=== PATIENT | male | born 1950 | race Caucasian/White ===

== ENCOUNTER 2017-04-01 11:26 | Emergency (ER) | payer BC ==
[2017-04-01 11:50] VITALS: O2SAT 98
--- NOTE | 2017-04-01 12:46 | RAD ---
PROCEDURE: Right Wrist Radiographs. HISTORY: fall R arm trauma COMPARISON: None. FINDINGS: BONES: No acute fracture or destructive bony lesion identified. JOINTS: Degenerative joint space narrowing and articular cortical sclerosis appreciate throughout the carpal metacarpal articulations diffusely as well as the trapezium and trapezius articulations with the navicular bone. No dislocation or subluxation appreciated. SOFT TISSUES: Normal. OTHER FINDINGS: None. IMPRESSION: Degenerative changes as per above. No acute fracture or dislocation identified.
--- NOTE | 2017-04-01 12:48 | RAD ---
PROCEDURE: Radiographs of the Right Forearm HISTORY: fall R arm trauma COMPARISON: None available. TECHNIQUE: Frontal and lateral views obtained. FINDINGS: BONES: No fracture or destructive lesion. JOINT SPACES: There is a proximal and medial dislocation of the proximal radius and ulna at the elbow joint. Varus angulation results. OTHER FINDINGS: None. IMPRESSION: Proximal slice medial dislocation right radius and ulna with valgus angulation at the elbow joint. No fracture appreciable.
--- NOTE | 2017-04-01 12:49 | RAD ---
PROCEDURE: Radiographs of the right elbow. HISTORY: fall R arm trauma COMPARISON: No prior. FINDINGS: BONES: No acute fracture or destructive bony lesion identified. JOINTS: Proximal medial dislocation of the radius and ulna is appreciate relative to the distal humerus as described in separate forearm radiography also performed 04/01/2017. SOFT TISSUES: Diffuse subtle edema is appreciated subcutaneous fat throughout the elbow, distal arm and proximal forearm as imaged. JOINT EFFUSION: None. OTHER FINDINGS: None. IMPRESSION: Right elbow dislocation without fracture as discussed above.
--- NOTE | 2017-04-01 12:52 | RAD ---
PROCEDURE: Radiographs of the right humerus. HISTORY: fall R arm trauma COMPARISON: None. FINDINGS: BONES: No acute fracture or destructive bony lesion identified.Dislocated elbow was appreciated described in greater detail separate elbow and forearm radiographs of the right arm also performed 04/01/2017. SOFT TISSUES: Reticular changes is seen reflecting edema in the medial elbow subcutaneous fat. OTHER FINDINGS: None. IMPRESSION: Dislocated right elbow without fracture of the right humerus.
--- NOTE | 2017-04-01 14:01 | ED PDOC ---
Upper Extremity Pain/Injury Time Seen by Provider: 04/01/17 11:44 Chief Complaint (Nursing): Upper Extremity Problem/Injury Chief Complaint (Provider): Right arm injury History Per: Patient History/Exam Limitations: no limitations Onset/Duration Of Symptoms: Days (x3) Current Symptoms Are (Timing): Still Present Additional Complaint(s): Wilfredo Wooten is a 66 year old male with a past surgical history of shoulder surgery occurring 35 years ago presenting to the ED for an evaluation of a right arm injury occurring 3 days prior to arrival. The patient states he was working on his car on Sunday when he slipped and fell causing an injury to his right arm. Since then, the patient reports limited range of motion with an inability to flex his lower arm and states having difficulty opening jars with his right hand. The patient denies shoulder, neck, or back pain. PMD: None Provided Past Medical History Reviewed: Historical Data, Nursing Documentation, Vital Signs Vital Signs: Last Vital Signs Temp 97 F L 04/01/17 11:48 Pulse 90 04/01/17 11:48 Resp 20 04/01/17 11:48 BP 151/96 H 04/01/17 11:48 Pulse Ox 98 04/01/17 11:48 - Medical History PMH: No Chronic Diseases - Surgical History Other surgeries: shoulder surgery - Family History Family History: States: No Known Family Hx - Allergies Allergies/Adverse Reactions: Allergies Allergy/AdvReac Type Severity Reaction Status Date / Time No Known Allergies Allergy Verified 04/01/17 11:50 Review of Systems ROS Statement: Except As Marked, All Systems Reviewed And Found Negative Musculoskeletal: Positive for: Arm Pain (right). Negative for: Neck Pain, Shoulder Pain, Back Pain Physical Exam - Reviewed Nursing Documentation Reviewed: Yes Vital Signs Reviewed: Yes - Physical Exam Appears: Positive for: Non-toxic, No Acute Distress Head Exam: Positive for: ATRAUMATIC, NORMOCEPHALIC Skin: Positive for: Normal Color, Warm, Dry Eye Exam: Positive for: Normal appearance, EOMI ENT: Positive for: Normal ENT Inspection Neck: Positive for: Normal, Painless ROM Cardiovascular/Chest: Positive for: Regular Rate, Rhythm, Chest Non Tender Respiratory: Positive for: Normal Breath Sounds. Negative for: Respiratory Distress Gastrointestinal/Abdominal: Positive for: Normal Exam, Soft. Negative for: Tenderness Extremity: Positive for: Tenderness (right hand and right shoulder are nontendor ; right wrist is mildly tendor), Deformity (right arm: elbow is edematous with ecchymosis, deformity, and limited ROM) Neurologic/Psych: Positive for: Alert, Oriented (x3). Negative for: Motor/ Sensory Deficits - Laboratory Results Result Diagrams: 04/01/17 14:05 04/01/17 14:05 - ECG O2 Sat by Pulse Oximetry: 98 (RA) Pulse Ox Interpretation: Normal Medical Decision Making Medical Decision Making: Time: 11:44 Impression: Right arm injury Plan: * ED ekg * CMP * NPO Diet * CBC (with differential) * Toradol 30 mg IM * ED Nitrous oxide via mask * [RAD] Elbow Right 3 Views Routine * [RAD] Forearm Right * [RAD] Humerus Right * [RAD] Wrist, Right 3 Views * Reevaluation X-rays showed a right elbow dislocation. Orthopedics was consulted and recommended attempted reduction in ED. Obtained consent. Patient refused sedation and wanted to try nitrous oxide instead. Patient tolerated procedure well, but reduction unsuccessful despite repeat attempts. Patients last PO intake was 8:30 AM this morning. Rediscussed w Dr Bell, will consult in ED, may require procedural sedation. Scribe Attestation: Documented by Debbie Carmona, acting as a scribe for Pernell Parra DO. Provider Scribe Attestation: All medical record entries made by the Scribe were at my direction and personally dictated by me. I have reviewed the chart and agree that the record accurately reflects my personal performance of the history, physical exam, medical decision making, and the department course for this patient. I have also personally directed, reviewed, and agree with the discharge instructions and disposition. Disposition - Clinical Impression Clinical Impression: Dislocated elbow - Patient ED Disposition Is Patient to be Admitted: Transfer of Care - Disposition Disposition: Transfer of Care Disposition Time: 16:28 Condition: FAIR Forms: [facility] ([place]i) Patient Signed Over To: Mindy Tay Handoff Comments: pending orthopedics evaluation in ED for reduction under sedation
[2017-04-01 14:16] LABS: BASO # 0.1 K/uL (0.0-0.2); BASO % 0.5 % (0.0-2.0); EOS % 0.3 % (0.0-4.0); HEMATOCRIT 43.7 % (35.0-51.0); LYMPH # 2.6 K/uL (1.0-4.3); LYMPH % 23.1 % (20.0-40.0); MEAN CELL VOLUME 91.3 fl (80.0-94.0); MEAN CORPUSCULAR HEMOGLOBIN 30.2 pg (27.0-31.0); MEAN CORPUSCULAR HGB CONC 33.1 g/dL (33.0-37.0); MEAN PLATELET VOLUME 9.4 fl (7.2-11.7); MONO # 1.2 K/uL (0.0-0.8); MONO % 10.7 % (0.0-10.0); NEUT # 7.3 K/uL (1.8-7.0); NEUT % 65.4 % (50.0-75.0); RED CELL DISTRIBUTION WIDTH 12.4 % (11.5-14.5); WHITE BLOOD COUNT 11.1 K/uL (4.8-10.8)
[2017-04-01 14:36] LABS: ALB/GLOB RATIO 1.3 (1.0-2.1); ALKALINE PHOSPHATASE 45 U/L (38-126); ALT/SGPT 39 U/L (21-72); AST/SGOT 53 U/L (17-59); BLOOD UREA NITROGEN 19 mg/dl (9-20); CALCIUM 8.8 mg/dL (8.4-10.2); CARBON DIOXIDE 26 mmol/L (22-30); CHLORIDE 107 mmol/L (98-107); GFR AFRICAN-AMERICAN > 60; GLUCOSE,RANDOM 110 mg/dL (75-110); POTASSIUM 4.2 MMOL/L (3.6-5.0); SODIUM 140 mmol/l (132-148); TOTAL PROTEIN 7.4 G/DL (6.3-8.2)
[2017-04-01] MEDS ORDERED: Propofol 10 mg/ml Inj (20 ML) ONE ×2 (16:07→16:23)
[2017-04-01] MEDS ORDERED: Propofol 10 mg/ml 0 MG/0 ML VIAL ONE (16:08)
[2017-04-01] MEDS ORDERED: Propofol 10 mg/ml Inj (20 ML) IV ONE (16:09)
[2017-04-01 16:33] VITALS: TEMP 98
--- NOTE | 2017-04-01 17:16 | ED PDOC ---
- Laboratory Results Result Diagrams: 04/01/17 14:05 04/01/17 14:05 - ECG O2 Sat by Pulse Oximetry: 98 (RA) Pulse Ox Interpretation: Normal Medical Decision Making Medical Decision Making: --16:00 Patient signed out to me by Dr. Pernell Parra III pending evaluation of the patient's right elbow dislocation by Dr. Bell (ortho) Reassess --16:[address] Bell under conscious sedation. Right elbow was reduced by Dr. Bell. Patient to have Cat Scan and pending reevaluation the patient will be discharged to follow up with Dr. Bell next week. --18:07 FINDINGS: CT Right Upper Extremity Without Intravenous Contrast, Elbow Bones/joints: There has been interval reduction of the previously described radial and ulnar dislocations. There is very mild lateral (radial) subluxation of the radial head relative to the capitellum and of the ulnar coronoid process relative to the trochlea. There is also very mild posterior subluxation of the radial head relative to the capitellum. Tiny, minimally displaced fracture through the anterior lip of the ulnar coronoid process. There are also multiple 1-2 mm calcific foci in the soft tissues about the elbow but no definite donor fracture site(s) are identified. Soft tissues: Extensive swelling and edema of the soft tissues around the elbow. Small elbow effusion. No air in the soft tissues. No radiopaque foreign body. IMPRESSION: 1. Interval reduction of the previously described radial and ulnar dislocations. Very mild radial and ulnar subluxation as described above. 2. Tiny, minimally displaced fracture through the anterior lip of the ulnar coronoid process. 3. Multiple 1-2 mm calcific foci in the soft tissues about the elbow may be nonspecific soft tissue calcifications as no definite donor fracture site(s) are identified but tiny fracture fragments are not excluded. 4. Extensive soft tissue swelling and edema. Small elbow effusion 6P On reeval pt is awake oriented x 3. Aware of plan of care. Scribe Attestation: Documented by Andre Springer acting as a scribe for Mindy Tay MD. Disposition - Clinical Impression Clinical Impression: Dislocated elbow, Fracture of coronoid process of left ulna - POA Present On Arrival: Falls Or Trauma - Disposition Referrals: Carter Bell MD [Medical Doctor] - 04/02/17 (CALL TOMORROW TO SETUP FOLLOW UP APPOINTMENT THIS WEEK) Disposition: Routine/Home Disposition Time: 18:45 Condition: IMPROVED Prescriptions: Ibuprofen [Motrin Tab] 600 mg PO Q8 PRN #30 tab PRN Reason: Pain, Moderate (4-7) Instructions: Elbow Dislocation (ED), Deep Sedation (ED), Cast Care (ED) ED Procedural Sedation - Pre Anesthesia Assessment Chief Complaint: Upper Extremity Problem/Injury Past Medical History: Medications Reviewed, Allergies Reviewed, Record Review Previous Surgies: Reviewed Family History/Social History: Reviewed - Physical Exam/Review of Systems Vital Signs Reviewed: Yes Cardiovascular: Regular Rate and Rhythm, Normal S1, S2. denies: Murmurs Respiratory/Chest: Clear to Auscultation, Good Air Exchange, Respiratory Distress. denies: Accessory Muscle Use Neurological: GCS=15, CN II-XII Intact, Speech Normal Abdomen: denies: Tenderness, Distention, Peritoneal Signs Mental Status: Alert and Oriented X 3 - Pre-Procedure Airway Assessment History of difficult intubation or surgical airway(i.e trach: No Inability to extend neck:: No Mouth opening less than two finger breadth:: No Diagnosis of sleep apnea:: No Less than three finger breadth to hyoid bone:: No ASA Criteria: 1 - Healthy, normal. 2 - Mild systemic disease (No functional limitations, mildline obesity, DM withot complications, Hypertention). 3 - Severe systemic disease (Some functional limitation, stable angina, morbid obesity, controlled COPD/Asthma/CHF). 4 - Sever systemic disease constant threat to life (Unstable angina, active symptoms of COPD/Asthma, CHF/ Hypertension. 5 - Moribund ASA Clarification: ASA I Mallampati (airway): Class I - Intra-Procedure (Medications) Medications Given: Discontinued Medications Ketorolac Tromethamine (Toradol) 30 mg IM ONCE STA Stop: 04/01/17 11:56 Last Admin: 04/01/17 11:59 Dose: 30 mg YADIRA Pain Assessment Document 04/01/17 11:59 CDB (Rec: 04/01/17 12:02 [facility] [id number]) Pain Reassessment Is this a pain reassessment? No Sleep Is patient sleeping during reassessment? No Presence of Pain Presence of Pain Yes Pain Scale Used Pain Scale Used Numeric Location Left, Right or Bilateral Right Pain Location Body Site Arm Description Description Intermittent Intensity of Pain at present 6 Pain Behavior Facial Grimacing Aggravating Factors Changing Position Exercise/Activity Alleviating Factors/Management Medication Techniques IM Administration Charges Document 04/01/17 11:59 CDB (Rec: 04/01/17 12:02 CDB [id number]) Injection Site MAR Injection Site Left Deltoid Charges for Administration # of IM Administrations 1 Re-Assess: MAR Pain Reassessment Document 04/01/17 12:29 [email or web address] (Rec: 04/01/17 14:08 [facility] [id number]) Sleep Is patient sleeping during reassessment? No Pain Reassessment Pain not relieved and LIP/MD was No notified Pain Scale Used Numeric Upper or Lower Upper Description Intermittent Alleviating Techniques Medication Propofol (Diprivan) 200 mg IV ONCE ONE Stop: 04/01/17 16:10 Last Admin: 04/01/17 16:11 Dose: 200 mg eMAR Start Stop Document 04/01/17 16:11 [email or web address] (Rec: 04/01/17 16:13 [facility] [id number]) Intravenous Solution Start Date 04/01/17 Start Time 16:11 End Date 04/01/17 [place] Agitation Sedation Document 04/01/17 16:11 TB01 (Rec: 04/01/17 16:13 [facility] [id number]) [place]la Agitation Sedation Scale [place] Agitation Sedation Scale Score -3 Moderate Sedation:Movement or eye opening to voice (no eye contact)
[2017-04-01 19:18] VITALS: RESP 20
--- NOTE | 2017-04-02 08:14 | RAD ---
PROCEDURE: Radiographs of the right elbow. HISTORY: Postreduction radiographs COMPARISON: 04/01/2017 FINDINGS: BONES: Tiny avulsion fracture from the medial epicondyles. JOINTS: Anatomic alignment status post reduction. SOFT TISSUES: Considerable soft tissue swelling related to recent dislocation. JOINT EFFUSION: None. OTHER FINDINGS: None. IMPRESSION: Satisfactory reduction of known right elbow dislocation.
--- NOTE | 2017-04-02 08:16 | RAD ---
PROCEDURE: Radiographs of the right elbow. HISTORY: Post immobilization. COMPARISON: April 01, 2017. FINDINGS: BONES: No identifiable fracture. Limitations of the current study: Detail obscured by overlying fiberglass cast. JOINTS: Incompletely characterize subluxation right elbow SOFT TISSUES: Normal. JOINT EFFUSION: None. OTHER FINDINGS: None. IMPRESSION: Status post immobilization. Continued subluxation primarily of the olecranon.
--- NOTE | 2017-04-02 12:55 | CON ---
DATE: 04/01/2017 REASON FOR CONSULTATION: Right elbow dislocation. HISTORY OF PRESENT ILLNESS: This is a 66-year-old right-hand dominant male who sustained a slip and fall on the snow on 03/30/2017. The patient presents to the emergency room today for a concern of pain in the elbow and inability to move the elbow joint. The patient was evaluated by the emergency room attending. He underwent failed closed reduction and the elbow continued to dislocate. I was consulted for further evaluation and treatment. I saw the patient in the emergency room with following findings. PHYSICAL EXAMINATION: RIGHT ELBOW: There is diffuse swelling and ecchymosis of the elbow. There is valgus deformity. The patient has good sensation in the median, ulnar, and radial nerve distribution. Distal pulses are +2, good capillary refills. It is difficult to do active flexion and extension with the elbow. The hand is in pronation position. No pain over the wrist/hand area, and no pain over the shoulder area. IMAGING STUDIES: X-rays were seen and reviewed, a posterolateral elbow dislocation. No fractures evident on x-rays. ASSESSMENT: Right elbow posterolateral fracture dislocation, recurrent. PLAN: I discussed the above findings with the patient and the ER physician. I recommend another closed reduction in the emergency room. PROCEDURE: Informed consent was obtained for conscious sedation with anesthesia and closed reduction of the elbow. After conscious sedation was administered by the ER physician, the patient underwent closed reduction of the elbow with traction and counter traction supination and flexion of forearm. A varus-directed force was applied to the elbow palpable click was felt. Fluoroscopic images confirmed well-reduced elbow in both AP and lateral films. The elbow was, however, highly unstable with instability of the elbow past 20 degrees of flexion a long-arm cast was applied with the elbow in 20 degrees flexion with supination. Post-cast x-rays again confirmed a well-aligned elbow joint in AP and lateral films. Post cast CT scan was ordered and the patient will continue cast immobilisation. Follow up with me in one week in my office for further evaluation. Carter Bell MD [facility]
--- NOTE | 2017-04-02 13:32 | CT ---
PROCEDURE: CT right upper extremity/elbow HISTORY: RIGHT elbow dislocation post reduction COMPARISON: April 01, 2017. TECHNIQUE: 1.25 mm axial acquisition and display. Coronal and sagittal reconstructions. 3D volume rendering images. Radiation dosimetry DLP (mGy-cm) 136.[address] scans at this facility use one or more dose reduction techniques. Automated exposure control ; mA/kv adjustment per patient size (including targeted exams were dose is matched to indication) or iterative reconstruction technique. FINDINGS: Residual subluxations without florid dislocation, finding identified on the initial right elbow radiographs April 01, 2017.Time of the most recent examination: 12:07. Small avulsion fracture from the olecranon. Small avulsion fracture from the medial epicondylar region. Profound soft swelling. Incompletely visualized joint effusion. IMPRESSION: Reduction of dislocations of the radius and ulna relative to the distal humerus. Subluxation/ pseudosubluxation persists. Tiny avulsion fractures from the distal humerus and olecranon. Soft tissue swelling attests to the acuity of the dislocation/fractures. Concordant results (preliminary interpretation) provided by [facility]. Procedure Completed: 17:05 Preliminary ([facility]) Report: Dictated and Authenticated: 18:07 Final Interpretation: 13:30 April 02, 2017.
--- NOTE | 2017-04-02 16:57 | CARD ---
APPROVED REPORT EKG Measurement Heart [id number] [id number] <Conclusion> Normal sinus rhythm Normal ECG
[2017-04-03 13:14] VITALS: BP 124/78; PULSE 82
== END 2017-04-01 19:19 | disposition home or self-care (01) ==
LOC: H.ER 11:26
DX: S53.104A Unspecified dislocation of right ulnohumeral joint, initial encounter (principal); W00.0XXA Fall on same level due to ice and snow, initial encounter
CPT/HCPCS: 24600; 73060; 73070; 73080; 73090; 73110; 73200; 80053; 85025; 93005; 94770; 96372; 99284; J1885; J2704